=== PATIENT | female | born 1965 | race Hispanic/Latino ===

== ENCOUNTER 2021-11-30 02:34 | Emergency (ER) | payer BC, SELFPAY ==
[2021-11-30 03:34] LABS: Absolute Lymphocytes (CBC) 4.7 K/uL (0.7-4.9); Hematocrit 42.1 % (36.0-45.0); Lymphocytes % 45.3 % (15.3-44.8); MPV 7.8 fL (7.6-11.3); RBC Red Blood Cell Count 4.99 M/uL (3.86-4.86)
[2021-11-30 03:35] LABS: Protime INR 0.92
[2021-11-30 03:50] LABS: Albumin 3.9 g/dL (3.4-5.0); Bilirubin Direct 0.1 mg/dL (0-0.2); Bilirubin Total 0.4 mg/dL (0.2-1.0); Magnesium 2.3 mg/dL (1.8-2.4); Potassium 3.7 mmol/L (3.5-5.1); Protein, Total 7.4 g/dL (6.4-8.2); Troponin High Sensitivity 3.4 pg/mL (<58.9)
--- NOTE | 2021-11-30 06:46 | EDPHYS ---
Physician Documentation [facility] Name: Jennifer Lancaster Age: 56 yrs Sex: Female : 1965 Arrival Date: 11/30/2021 Time: 02:39 Bed 20 Private MD: ED Physician Obed Scott HPI: 11/30 04:02 This 56 yrs old Female presents to ER via Ambulatory with complaints of Leg kdr Pain, Knee Pain, High Blood Pressure, Neck Pain, >24Hrs Old, Back Pain. 04:03 The patient has multiple complaints including right leg and knee pain, hypertension, kdr posterior headache that radiates down her back, hypertension. Onset: The symptoms/episode began/occurred The symptoms have been ongoing in some instances for weeks and in other instances 4 months. The complaint of most concern was her elevated blood pressure for which she has been taking one half times her normal blood pressure medication. Patient is completely nontoxic and nonacute appearing. Vital signs are good on my initial evaluation with a blood pressure 116 systolic. Severity of symptoms: At their worst the symptoms were mild moderate just prior to arrival, in the emergency department the symptoms are unchanged. The patient has not experienced similar symptoms in the past, The patient has experienced similar episodes in the past, multiple times. The patient has not recently seen a physician. Historical: - Allergies: 02:47 No Known Allergies; sm5 - Home Meds: 02:47 losartan-hydrochlorothiazide 100-12.5 mg oral tab [Active]; sm5 - PMHx: 02:47 Hypertensive disorder; sm5 - Immunization history:: Client reports receiving the 2nd dose of the Covid vaccine. - Social history:: Smoking status: Patient denies any tobacco usage or history of. ROS: 04:03 Constitutional: Negative for fever, chills, and weight loss, Eyes: Negative for injury, kdr pain, redness, and discharge, Neck: Negative for injury, pain, and swelling, Cardiovascular: Negative for chest pain, palpitations, and edema, Respiratory: Negative for shortness of breath, cough, wheezing, and pleuritic chest pain, Abdomen/GI: Negative for abdominal pain, nausea, vomiting, diarrhea, and constipation, Back: Negative for injury and pain, : Negative for injury, bleeding, discharge, and swelling, Skin: Negative for injury, rash, and discoloration, Psych: Negative for depression, anxiety, suicide ideation, homicidal ideation, and hallucinations, Allergy/Immunology: Negative for hives, rash, and allergies, Endocrine: Negative for neck swelling, polydipsia, polyuria, polyphagia, and marked weight changes, Hematologic/Lymphatic: Negative for swollen nodes, abnormal bleeding, and unusual bruising. 04:03 MS/extremity: Positive for pain, swelling. Exam: 03:47 ECG was reviewed by the Attending Physician. kdr Vital Signs: 02:43 BP 119 / 81; Pulse 77; Resp 18; Temp 97.5; Pulse Ox 100% on R/A; Weight 86.18 kg; sm5 Height 5 ft. 2 in. (157.48 cm); Pain 8/10; 02:56 BP 128 / 110 RA Supine (auto/reg); Pulse 78 MON; Resp 18 S; Pulse Ox 99% on R/A; Pain tk1 10/10; 03:14 BP 140 / 94 LA Supine (auto/reg); Pulse 66 MON; Resp 16 S; Pulse Ox 98% on R/A; Pain tk1 10/10; 04:17 BP 131 / 89 LA Supine (auto/reg); Pulse 64 MON; Resp 18 S; Temp 98(O); Pulse Ox 99% ; tk1 Pain 5/10; 06:00 BP 128 / 82 LA Supine (auto/reg); Pulse 62 MON; Resp 17; Temp 98.3(O); Pulse Ox 100% ; tk1 Pain 0/10; 02:43 Body Mass Index 34.75 (86.18 kg, 157.48 cm) 5 Michael Coma Score: 02:56 Eye Response: spontaneous(4). Verbal Response: oriented(5). Motor Response: obeys tk1 commands(6). Total: 15. MDM: 06:46 Patient medically screened. kdr 11/30 03:02 Order name: Basic Metabolic Panel kdr 11/30 03:02 Order name: CBC with Diff kdr 11/30 03:02 Order name: LFT's; Complete Time: 04:46 kdr 11/30 03:02 Order name: Magnesium; Complete Time: 04:46 kdr 11/30 03:02 Order name: NT PRO-BNP; Complete Time: 04:46 kdr 11/30 03:02 Order name: PT-INR; Complete Time: 04:46 kdr 11/30 03:02 Order name: Troponin HS; Complete Time: 04:46 kdr 11/30 03:02 Order name: XRAY Chest (1 view) kdr 11/30 03:02 Order name: EKG; Complete Time: 03:03 kdr 11/30 03:02 Order name: Cardiac monitoring; Complete Time: 03:10 kdr 11/30 03:02 Order name: CT Head Brain wo Cont kdr 11/30 03:02 Order name: US Extremity Venous Unilateral Ltd kdr 11/30 03:03 Order name: Basic Metabolic Panel; Complete Time: 04:46 EDMS 11/30 03:03 Order name: CBC with Automated Diff; Complete Time: 04:46 EDMS 11/30 03:02 Order name: EKG - Nurse/Tech; Complete Time: 03:19 kdr 11/30 03:02 Order name: IV Saline Lock; Complete Time: 03:10 kdr 11/30 03:02 Order name: Labs collected and sent; Complete Time: 07:15 kdr 11/30 03:02 Order name: O2 Per Protocol; Complete Time: 03:10 kdr 11/30 03:02 Order name: O2 Sat Monitoring; Complete Time: 03:10 kdr EC:47 Rate is 67 beats/min. Rhythm is regular, Sinus Rhythm with No ectopy. QRS Tarkio is kdr Normal. HI interval is normal. QRS interval is normal. QT interval is normal. Clinical impression: NSR w/ Non-specific ST/T Changes. Administered Medications: No medications were administered Disposition Summary: 11/30/21 06:46 Discharge Ordered Location: Home kdr Problem: an ongoing problem kdr Symptoms: have improved kdr Condition: Stable kdr Diagnosis - Pain in right knee kdr Followup: kdr - With: Private Physician - When: 2 - 3 days - Reason: If symptoms return, Further diagnostic work-up, Recheck today's complaints, Continuance of care, Re-evaluation by your physician Discharge Instructions: - Discharge Summary Sheet kdr Forms: - Medication Reconciliation Form kdr - Thank You Letter kdr - Antibiotic Education kdr - Prescription Opioid Use kdr Signatures: Dispatcher [employer] Obed Garcia MD MD kdr Tamie Valencia, RN RN sm5
--- NOTE | 2021-11-30 06:46 | ER ---
Nurse's Notes [facility] Name: Jennifer Lancaster Age: 56 yrs Sex: Female : 1965 Arrival Date: 11/30/2021 Time: 02:39 Bed 20 Private MD: Diagnosis: Pain in right knee Presentation: 11/30 02:43 Chief complaint: Patient states: she has been having R knee pain, R knee swelling, neck sm5 pain, headache for 4 days. also states her bp at home was 158/107, took extra dose of her bp medication. states the R side of her foot is "sleepy". Coronavirus screen: Vaccine status: Patient reports receiving the 2nd dose of the covid vaccine. Ebola Screen: No symptoms or risks identified at this time. Initial Sepsis Screen: Does the patient meet any 2 criteria? No. Patient's initial sepsis screen is negative. Does the patient have a suspected source of infection? No. Patient's initial sepsis screen is negative. Risk Assessment: Do you want to hurt yourself or someone else? Patient reports no desire to harm self or others. Onset of symptoms was November 26, 2021. 02:43 Method Of Arrival: Ambulatory 5 02:43 Acuity: TIO 4 sm5 Triage Assessment: 02:48 General: Appears in no apparent distress. Behavior is cooperative. Pain: Complains of sm5 pain in right leg, right knee head. Neuro: No deficits noted. Level of Consciousness is awake, alert, obeys commands, Oriented to person, place, time, situation. Cardiovascular: Capillary refill < 3 seconds Patient's skin is warm and dry. Respiratory: Airway is patent Trachea midline Respiratory effort is even, unlabored. Historical: - Allergies: 02:47 No Known Allergies; sm5 - Home Meds: 02:47 losartan-hydrochlorothiazide 100-12.5 mg oral tab [Active]; sm5 - PMHx: 02:47 Hypertensive disorder; sm5 - Immunization history:: Client reports receiving the 2nd dose of the Covid vaccine. - Social history:: Smoking status: Patient denies any tobacco usage or history of. Screenin:49 Abuse screen: Denies threats or abuse. Denies injuries from another. Nutritional sm5 screening: No deficits noted. Tuberculosis screening: No symptoms or risk factors identified. Fall Risk None identified. Assessment: 02:56 General: Appears obese, well groomed, well developed, well nourished, Behavior is calm, tk1 cooperative, appropriate for age. Pain: Complains of pain in top of head, left side of the back of head, left occipital area, left base of the skull, right side of the back of head, right occipital area and right base of the skull Pain radiates to posterior chest Pain currently is 10 out of 10 on a pain scale. Quality of pain is described as burning, Pain began 2-3 days ago. Is intermittent. Neuro: Level of Consciousness is awake, alert, obeys commands, Oriented to person, place, time, situation, Appropriate for age [employer] are equal bilaterally Moves all extremities. Full function Gait is steady, Speech is normal, Facial symmetry appears normal, Pupils are PERRLA, Reports headache. Cardiovascular: Heart tones S1 S2 present Capillary refill < 3 seconds is brisk in bilateral fingers Clubbing of nail beds is absent JVD is absent. Respiratory: No deficits noted. Airway is patent Trachea midline Respiratory effort is even, unlabored, Respiratory pattern is regular, symmetrical. GI: No deficits noted. No signs and/or symptoms were reported involving the gastrointestinal system. : No deficits noted. No signs and/or symptoms were reported regarding the genitourinary system. EENT: No deficits noted. EENT: No deficits noted. No signs and/or symptoms were reported regarding the EENT system. Derm: No deficits noted. No signs and/or symptoms reported regarding the dermatologic system. Musculoskeletal: Swelling present in right knee. 04:18 Reassessment: No changes from previously documented assessment. Patient is alert, tk1 oriented x 3, equal unlabored respirations, skin warm/dry/pink. Patient to radiology with tech for CT. 04:36 Reassessment: Patient returned from CT. Tolerated well. tk1 05:30 Reassessment: No changes from previously documented assessment. Patient and/or family tk1 updated on plan of care and expected duration. Pain level reassessed. Patient is alert, oriented x 3, equal unlabored respirations, skin warm/dry/pink. 06:35 Reassessment: Patient is alert, oriented x 3, equal unlabored respirations, skin tk1 warm/dry/pink. Patient awaiting disposition. 07:15 Reassessment: No changes from previously documented assessment. Patient and/or family ll1 updated on plan of care and expected duration. Pain level reassessed. Patient is alert, oriented x 3, equal unlabored respirations, skin warm/dry/pink. Vital Signs: 02:43 BP 119 / 81; Pulse 77; Resp 18; Temp 97.5; Pulse Ox 100% on R/A; Weight 86.18 kg; sm5 Height 5 ft. 2 in. (157.48 cm); Pain 8/10; 02:56 BP 128 / 110 RA Supine (auto/reg); Pulse 78 MON; Resp 18 S; Pulse Ox 99% on R/A; Pain tk1 10; 03:14 BP 140 / 94 LA Supine (auto/reg); Pulse 66 MON; Resp 16 S; Pulse Ox 98% on R/A; Pain tk1 10; 04:17 BP 131 / 89 LA Supine (auto/reg); Pulse 64 MON; Resp 18 S; Temp 98(O); Pulse Ox 99% ; tk1 Pain 5; 06:00 BP 128 / 82 LA Supine (auto/reg); Pulse 62 MON; Resp 17; Temp 98.3(O); Pulse Ox 100% ; tk1 Pain 0/10; 02:43 Body Mass Index 34.75 (86.18 kg, 157.48 cm) 5 Franklin Coma Score: 02:56 Eye Response: spontaneous(4). Verbal Response: oriented(5). Motor Response: obeys tk1 commands(6). Total: 15. ED Course: 02:39 Patient arrived in ED. ja2 02:47 Triage completed. sm5 02:48 Arm band placed on right wrist. sm5 02:53 Obed Scott MD is Attending Physician. kdr 02:56 Mirian Bansal is Primary Nurse. tk1 02:56 Patient has correct armband on for positive identification. Bed in low position. Call tk1 light in reach. Side rails up X2. Pulse ox on. NIBP on. 02:56 No provider procedures requiring assistance completed. tk1 03:10 Basic Metabolic Panel Sent. tk1 03:10 CBC with Diff Sent. tk1 03:10 Basic Metabolic Panel Sent. tk1 03:10 CBC with Automated Diff Sent. tk1 03:10 LFT's Sent. tk1 03:10 Magnesium Sent. tk1 03:11 NT PRO-BNP Sent. tk1 03:11 PT-INR Sent. tk1 03:11 Troponin HS Sent. tk1 03:45 US Extremity Venous Unilateral Ltd In Process Unspecified. EDMS 04:01 XRAY Chest (1 view) In Process Unspecified. EDMS 04:25 CT Head Brain wo Cont In Process Unspecified. EDMS 06:36 IV is patent, is intact, with fluids infusing freely, with good blood return. tk1 06:53 IV discontinued, intact, bleeding controlled, No redness/swelling at site. Pressure tk1 dressing applied. Administered Medications: No medications were administered Outcome: 06:46 Discharge ordered by . kdr 07:15 Discharged to home ambulatory. ll1 07:15 Condition: stable 07:15 Discharge instructions given to patient, Instructed on discharge instructions, follow up and referral plans. Demonstrated understanding of instructions, follow-up care. 07:16 Patient left the ED. ll1 Signatures: Dispatcher [employer] EDMI Obed Scott MD MD kdr Kenisha Hodge RN RN ll1 May Miranda Sarah, MARTY RN 5 Mirian Bansal tk1
--- NOTE | 2021-11-30 07:08 | RAD REPORT ---
EXAM DESCRIPTION: US - Extremity Venous Uni Ltd - 11/30/2021 3:46 am CLINICAL HISTORY: SWELLING Preliminary findings provided at the time of the study. COMPARISON: None. TECHNIQUE: Real-time sonographic evaluation of the right lower extremity deep venous systems was per formed. FINDINGS: Normal compressibility, flow augmentation, phasic flow and spontaneous flow are identified in the right lower extremity common femoral, superficial femoral, popliteal and posterior tibial vei ns. No intraluminal filling defects seen. IMPRESSION: No DVT in the right lower extremity.
[2021-11-30 07:25] VITALS: BP 128/82; TEMP 98.3; O2SAT 100
--- NOTE | 2021-11-30 15:06 | RAD REPORT ---
EXAM DESCRIPTION: CT - Head Brain Wo Cont - 11/30/2021 6:50 am CLINICAL HISTORY: The patient is 56 years old and is Female; HEADACHE TECHNIQUE: Axial computed tomography images of the head/brain without intravenous contrast. Sagitt al and coronal reformatted images were created and reviewed. This CT exam was performed using one o r more of the following dose reduction techniques: automated exposure control, adjustment of the mA and/or kV according to patient size, and/or use of iterative reconstruction technique. COMPARISON: No relevant prior studies available. FINDINGS: Brain: Unremarkable. No hemorrhage. No significant white matter disease. No edema. Ventricles: Unremarkable. No ventriculomegaly. Bones/joints: Unremarkable. No acute skull fracture. Soft tissues: Unremarkable. Sinuses: Unremarkable as visualized. No acute sinusitis. Mastoid air cells: No significant mastoid fluid. IMPRESSION: No acute intracranial findings. No hemorrhage. Electronically signed by: Marcelle Santiago MD 11/30/2021 5:10 AM [employer] Due to temporary technical issues with the PACS/Fluency reporting system, reports are being signed by the in house radiologists without review as a courtesy to insure prompt reporting. The interpreting radiologist is fully responsible for the content of the report.
--- NOTE | 2021-11-30 15:16 | RAD REPORT ---
EXAM DESCRIPTION: RAD - Chest Single View - 11/30/2021 3:59 am TECHNIQUE: Chest radiograph single view. CLINICAL HISTORY: Hypertension COMPARISON: None . FINDINGS: Heart: Cardiac silhouette is at the upper limit of normal in size. Mediastinum/Vessels: Normal. Lungs/Pleural space: There is limited evaluation of the lung bases due to overlying soft tissue att enuation. Otherwise lungs are aerated. No large pleural effusion or pneumothorax is seen. Bony thorax: No acute osseous abnormality. Life support devices: None. IMPRESSION: Limited evaluation of the lung bases, otherwise no pulmonary infiltrates are identified. If there is concern for lung base pneumonia, PA and lateral views could be obtained. Electronically signed by: Amanda He MD 11/30/2021 6:19 AM [employer] Due to temporary technical issues with the PACS/Fluency reporting system, reports are being signed by the in house radiologists without review as a courtesy to insure prompt reporting. The interpreting radiologist is fully responsible for the content of the report.
== END 2021-11-30 07:16 | disposition home or self-care (01) ==
LOC: ER 02:34
DX: M25.561 Pain in right knee (principal); I10 Essential (primary) hypertension
CPT/HCPCS: 36415; 70450; 71045; 80048; 80076; 83735; 83880; 84484; 85025; 85610; 93005; 93971; 99284